=== PATIENT | male | born 1960 | race Caucasian/White ===

== ENCOUNTER 2019-02-24 13:53 | Emergency (ER) | payer MEDICARE ==
[2019-02-24 14:20] VITALS: RESP 18
--- NOTE | 2019-02-24 15:11 | ED ---
Dizziness HPI - General Chief Complaint: Dizziness Stated Complaint: R arm pain, Dizziness Time Seen by Provider: 02/24/19 14:51 Source: patient, RN notes reviewed, old records reviewed Mode of arrival: wheelchair Limitations: no limitations - History of Present Illness Initial Comments: This is a 59-year-old male the ER for evaluation he presents today for evaluation regarding dizziness. Dizziness lightheadedness not feeling well. No chest pain no shortness of breath no recent travel history or sick contacts. Does have seizure history unknown cause of seizures. Patient takes Dilantin for seizures. No recent seizure. Patient states he did have symptoms that started at 10:30. No recent travel history no sick no nausea vomiting or diarrhea. MD Complaint: dizziness -: hour(s) Timing: gradual onset, waxing/waning Description: sense of movement, lightheadedness History of Same: No History of Trauma: No Severity: mild Improves With: nothing Worsens With: nothing Associated Symptoms: denies other symptoms - Related Data Home Medications Medication Instructions Recorded Confirmed Aspirin EC [Ecotrin] 650 mg PO DAILY PRN 02/24/19 02/24/19 Phenytoin Sodium Extended 200 mg PO HS 02/24/19 02/24/19 [Dilantin] Phenytoin Sodium Extended 300 mg PO QAM 02/24/19 02/24/19 [Dilantin] Allergies Allergy/AdvReac Type Severity Reaction Status Date / Time No Known Allergies Allergy Verified 02/24/19 14:56 Review of Systems ROS Statement: Those systems with pertinent positive or pertinent negative responses have been documented in the HPI. ROS Other: All systems not noted in ROS Statement are negative. Past Medical History Past Medical History: Seizure Disorder History of Any Multi-Drug Resistant Organisms: None Reported Past Surgical History: Hernia Repair Past Psychological History: No Psychological Hx Reported Smoking Status: Current every day smoker Past Alcohol Use History: None Reported Past Drug Use History: Marijuana General Exam - General Exam Comments Initial Comments: NIH of 0 Limitations: no limitations General appearance: alert, in no apparent distress Head exam: Present: atraumatic, normocephalic, normal inspection Eye exam: Present: normal appearance, PERRL, EOMI. Absent: scleral icterus, conjunctival injection, periorbital swelling ENT exam: Present: normal exam, mucous membranes moist Neck exam: Present: normal inspection. Absent: tenderness, meningismus, lymphadenopathy Respiratory exam: Present: normal lung sounds bilaterally. Absent: respiratory distress, wheezes, rales, rhonchi, stridor Cardiovascular Exam: Present: regular rate, normal rhythm, normal heart sounds. Absent: systolic murmur, diastolic murmur, rubs, gallop, clicks GI/Abdominal exam: Present: soft, normal bowel sounds. Absent: distended, tenderness, guarding, rebound, rigid Extremities exam: Present: normal inspection, full ROM, normal capillary refill. Absent: tenderness, pedal edema, joint swelling, calf tenderness Back exam: Present: normal inspection Neurological exam: Present: alert, oriented X3, CN II-XII intact Psychiatric exam: Present: normal affect, normal mood Skin exam: Present: warm, dry, intact, normal color. Absent: rash Course Vital Signs 02/24/19 14:14 Temperature 98.6 F Pulse Rate 67 Respiratory 18 Rate Blood Pressure 121/78 O2 Sat by Pulse 98 Oximetry - Reevaluation(s) Reevaluation #1: 02/24/19 16:29 Medical records reviewed Reevaluation #2: 02/24/19 16:29 Patient symptoms are improved here in the ER with hydration EKG Findings - EKG Comments: EKG Findings:: EKG shows sinus bradycardia rate of 58, DE 136, QRS 84, QTc 412 Medical Decision Making - Medical Decision Making 59 male the ER for evaluation. Patient is today for evaluation of dizziness. No significant cause found lab values normal CT is negative patient feeling better and can be discharged home - Lab Data Result diagrams: 02/24/19 16:00 02/24/19 16:00 Lab Results 02/24/19 02/24/19 02/24/19 Range/Units 16:00 16:00 16:00 WBC 6.3 (3.8-10.6) k/uL RBC 5.28 (4.30-5.90) m/uL Hgb 15.3 (13.0-17.5) gm/dL Hct 46.5 (39.0-53.0) % MCV 88.0 (80.0-100.0) fL MCH 28.9 (25.0-35.0) pg MCHC 32.9 (31.0-37.0) g/dL RDW 13.2 (11.5-15.5) % Plt Count 299 (150-450) k/uL Neutrophils % 60 % Lymphocytes % 24 % Monocytes % 8 % Eosinophils % 5 % Basophils % 1 % Neutrophils # 3.7 (1.3-7.7) k/uL Lymphocytes # 1.5 (1.0-4.8) k/uL Monocytes # 0.5 (0-1.0) k/uL Eosinophils # 0.3 (0-0.7) k/uL Basophils # 0.1 (0-0.2) k/uL PT (9.0-12.0) sec INR (<1.2) APTT (22.0-30.0) sec Sodium 138 (137-145) mmol/L Potassium 4.8 (3.5-5.1) mmol/L Chloride 105 (98-107) mmol/L Carbon Dioxide 29 (22-30) mmol/L Anion Gap 4 mmol/L BUN 13 (9-20) mg/dL Creatinine 0.94 (0.66-1.25) mg/dL Est GFR (CKD-EPI)AfAm >90 (>60 ml/min/1.73 sqM) Est GFR (CKD-EPI)NonAf 88 (>60 ml/min/1.73 sqM) Glucose 94 (74-99) mg/dL Calcium 9.5 (8.4-10.2) mg/dL Phosphorus 3.7 (2.5-4.5) mg/dL Magnesium 2.0 (1.6-2.3) mg/dL Total Bilirubin 0.4 (0.2-1.3) mg/dL AST 19 (17-59) U/L ALT 19 L (21-72) U/L Alkaline Phosphatase 113 (38-126) U/L Troponin I (0.000-0.034) ng/mL NT-Pro-B Natriuret Pep 59 pg/mL Total Protein 7.3 (6.3-8.2) g/dL Albumin 4.2 (3.5-5.0) g/dL TSH 1.120 (0.465-4.680) mIU/L Phenytoin 12.4 ug/mL 02/24/19 02/24/19 Range/Units 16:00 16:00 WBC (3.8-10.6) k/uL RBC (4.30-5.90) m/uL Hgb (13.0-17.5) gm/dL Hct (39.0-53.0) % MCV (80.0-100.0) fL MCH (25.0-35.0) pg MCHC (31.0-37.0) g/dL RDW (11.5-15.5) % Plt Count (150-450) k/uL Neutrophils % % Lymphocytes % % Monocytes % % Eosinophils % % Basophils % % Neutrophils # (1.3-7.7) k/uL Lymphocytes # (1.0-4.8) k/uL Monocytes # (0-1.0) k/uL Eosinophils # (0-0.7) k/uL Basophils # (0-0.2) k/uL PT 10.4 (9.0-12.0) sec INR 1.0 (<1.2) APTT 26.4 (22.0-30.0) sec Sodium (137-145) mmol/L Potassium (3.5-5.1) mmol/L Chloride (98-107) mmol/L Carbon Dioxide (22-30) mmol/L Anion Gap mmol/L BUN (9-20) mg/dL Creatinine (0.66-1.25) mg/dL Est GFR (CKD-EPI)AfAm (>60 ml/min/1.73 sqM) Est GFR (CKD-EPI)NonAf (>60 ml/min/1.73 sqM) Glucose (74-99) mg/dL Calcium (8.4-10.2) mg/dL Phosphorus (2.5-4.5) mg/dL Magnesium (1.6-2.3) mg/dL Total Bilirubin (0.2-1.3) mg/dL AST (17-59) U/L ALT (21-72) U/L Alkaline Phosphatase (38-126) U/L Troponin I <0.012 (0.000-0.034) ng/mL NT-Pro-B Natriuret Pep pg/mL Total Protein (6.3-8.2) g/dL Albumin (3.5-5.0) g/dL TSH (0.465-4.680) mIU/L Phenytoin ug/mL - Radiology Data Radiology results: report reviewed (CT brain is negative for acute disease), image reviewed Disposition Clinical Impression: Dizziness Disposition: HOME SELF-CARE Condition: Good Instructions (If sedation given, give patient instructions): Dizziness (ED) Is patient prescribed a controlled substance at d/c from ED?: No Referrals: None,Stated [Primary Care Provider] - 1-2 days
[2019-02-24] MEDS ORDERED: ONDANSETRON 4 MG/2 ML VIAL IVP STA (16:01)
[2019-02-24] MEDS ORDERED: SODIUM CHLORIDE 0.9% 1,000 ML IV STA (16:01)
[2019-02-24 16:10] LABS: Basophils # (A) 0.1 k/uL (0-0.2); Basophils % (A) 1 %; Eosinophils # (A) 0.3 k/uL (0-0.7); Eosinophils % (A) 5 %; HCT 46.5 % (39.0-53.0); HGB 15.3 gm/dL (13.0-17.5); Lymphocytes # (A) 1.5 k/uL (1.0-4.8); Lymphocytes % (A) 24 %; MCH 28.9 pg (25.0-35.0); MCHC 32.9 g/dL (31.0-37.0); Mean Platelet Volume 6.9; Monocytes # (A) 0.5 k/uL (0-1.0); Monocytes % (A) 8 %; Neutrophils # (A) 3.7 k/uL (1.3-7.7); Neutrophils % (A) 60 %; Platelet Count 299 k/uL (150-450); RBC 5.28 m/uL (4.30-5.90); RDW 13.2 % (11.5-15.5); WBC 6.3 k/uL (3.8-10.6)
[2019-02-24 16:20] LABS: Partial Thromboplastin Time 26.4 sec (22.0-30.0); Prothrombin Time 10.4 sec (9.0-12.0)
[2019-02-24 16:22] LABS: ALT 19 U/L (21-72); AST 19 U/L (17-59); African American GFR (CKD) >90 (>60 ml/min/1.73 sqM); Albumin 4.2 g/dL (3.5-5.0); Alkaline Phosphatase 113 U/L (38-126); Anion Gap 4 mmol/L; Blood Urea Nitrogen 13 mg/dL (9-20); Calcium 9.5 mg/dL (8.4-10.2); Carbon Dioxide 29 mmol/L (22-30); Chloride 105 mmol/L (98-107); Glucose 94 mg/dL (74-99); Phenytoin (Dilantin) 12.4 ug/mL; Phosphorus 3.7 mg/dL (2.5-4.5); Potassium 4.8 mmol/L (3.5-5.1); Sodium 138 mmol/L (137-145); Total Bilirubin 0.4 mg/dL (0.2-1.3); Total Protein 7.3 g/dL (6.3-8.2)
--- NOTE | 2019-02-24 16:38 | CT ---
EXAMINATION TYPE: CT brain wo con DATE OF EXAM: 02/24/2019 COMPARISON: None HISTORY: Right arm and leg numbness and tingling. CT DLP: 1099.4 mGycm Automated exposure control for dose reduction was used. FINDINGS: Ventricles have normal size. There is no mass effect nor midline shift. There is no sign of intracran ial hemorrhage. Calvarium is intact. There is mucosal thickening throughout the ethmoid sinuses exten ding into the frontal sinuses. There is mild mucosal thickening in the sphenoid and maxillary sinuses . IMPRESSION: NEGATIVE CT SCAN OF THE BRAIN. PANSINUSITIS.
[2019-02-24 17:56] VITALS: BP 112/66; PULSE 58; TEMP 97.3
== END 2019-02-24 17:56 | disposition home or self-care (01) ==
LOC: EC 13:53
DX: R42 Dizziness and giddiness (principal); G40.909 Epilepsy, unspecified, not intractable, without status epilepticus; F17.200 Nicotine dependence, unspecified, uncomplicated; Z79.82 Long term (current) use of aspirin; Z79.899 Other long term (current) drug therapy
CPT/HCPCS: 36415; 93005; 83880; 80053; 80185; 83735; 84100; 84443; 84484; 85025; 85610; 85730; 70450; 99285; 96374; 96361; J2405

== ENCOUNTER 2021-11-02 09:15 | Inpatient (IN) | payer MEDICARE ==
[2021-11-02] MEDS ORDERED: SODIUM CHLORIDE 0.9% 500 ML 500 ML IV STA (10:03)
--- NOTE | 2021-11-02 10:09 | ED ---
General Adult HPI - General Chief complaint: Nausea/Vomiting/Diarrhea Stated complaint: dizziness Time Seen by Provider: 11/02/21 09:33 Source: patient, EMS Mode of arrival: EMS Limitations: no limitations - History of Present Illness Initial comments: Dictation was produced using [employer] dictation software. please excuse any grammatical, word or spelling errors. Chief Complaint: 61-year-old male past medical history of seizure disorder presents to the ER for total body tingling paresthesias History of Present Illness: Is 61-year-old ninth past medical history of seizure disorder. He takes Dilantin. Patient denies any other medical problems. Patient states for the last 4 days he feels total body tingling from his head all the way down to his toes. Patient states he also has some mild nausea and dizziness. Denies any pain complaints. Denies any constitutional symptoms. The ROS documented in this emergency department record has been reviewed and confirmed by me. Those systems with pertinent positive or negative responses have been documented in the HPI. All other systems are other negative and/or noncontributory. PHYSICAL EXAM: General Impression: Alert and oriented x3, not in acute distress HEENT: Normocephalic atraumatic, extra-ocular movements intact, pupils equal and reactive to light bilaterally, mucous membranes moist. Cardiovascular: Heart regular rate and rhythm Chest: Able to complete full sentences, no retractions, no tachypnea Abdomen: abdomen soft, non-tender, non-distended, no organomegaly Musculoskeletal: Pulses present and equal in all extremities, no peripheral edema Motor: no focal deficits noted Neurological: CN II-XII grossly intact, no focal motor or sensory deficits noted Skin: Intact with no visualized rashes Psych: Normal affect and mood ED course: 61-year-old well-appearing male presents to the emergency department for total body paresthesias. Vital signs upon arrival are within acceptable limits. Laboratory evaluation obtained. CBC unremarkable. Metabolic panel is negative. Dilantin level is 35.1. Patient reevaluated bedside 11:45 AM. He is not showing any symptoms of Dilantin toxicity. Patient be admitted for the lab level monitor. Neurology will be consulted for history of seizures and Dilantin management. EKG interpretation: Ventricular rate 62, sinus rhythm,. Interval 183, appears 94, QTC 419. No [place] prolongation, no QTC prolongation, no ST or T-wave changes noted. Overall, this EKG is unremarkable - Related Data Home Medications Medication Instructions Recorded Confirmed Aspirin EC [Ecotrin] 650 mg PO DAILY PRN 02/24/19 02/24/19 Phenytoin Sodium Extended 200 mg PO HS 02/24/19 02/24/19 [Dilantin] Phenytoin Sodium Extended 300 mg PO QAM 02/24/19 02/24/19 [Dilantin] Allergies Allergy/AdvReac Type Severity Reaction Status Date / Time No Known Allergies Allergy Verified 02/24/19 14:56 Review of Systems ROS Statement: Those systems with pertinent positive or pertinent negative responses have been documented in the HPI. ROS Other: All systems not noted in ROS Statement are negative. Past Medical History Past Medical History: Seizure Disorder History of Any Multi-Drug Resistant Organisms: None Reported Past Surgical History: Hernia Repair Past Psychological History: No Psychological Hx Reported Smoking Status: Former smoker Past Alcohol Use History: None Reported Past Drug Use History: Marijuana General Exam Limitations: no limitations Course Vital Signs 11/02/21 11/02/21 09:18 11:06 Temperature 97.7 F Pulse Rate 70 63 Respiratory 20 18 Rate Blood Pressure 147/101 124/77 O2 Sat by Pulse 100 96 Oximetry Medical Decision Making - Lab Data Result diagrams: 11/02/21 10:08 11/02/21 10:08 Lab Results 11/02/21 11/02/21 Range/Units 10:08 10:08 WBC 7.9 (3.8-10.6) k/uL RBC 5.51 (4.30-5.90) m/uL Hgb 15.8 (13.0-17.5) gm/dL Hct 49.0 (39.0-53.0) % MCV 89.0 (80.0-100.0) fL MCH 28.6 (25.0-35.0) pg MCHC 32.1 (31.0-37.0) g/dL RDW 13.7 (11.5-15.5) % Plt Count 396 (150-450) k/uL MPV 7.7 Neutrophils % 66 % Lymphocytes % 20 % Monocytes % 7 % Eosinophils % 4 % Basophils % 1 % Neutrophils # 5.2 (1.3-7.7) k/uL Lymphocytes # 1.5 (1.0-4.8) k/uL Monocytes # 0.5 (0-1.0) k/uL Eosinophils # 0.3 (0-0.7) k/uL Basophils # 0.1 (0-0.2) k/uL Sodium 139 (137-145) mmol/L Potassium 5.3 H (3.5-5.1) mmol/L Chloride 103 (98-107) mmol/L Carbon Dioxide 30 (22-30) mmol/L Anion Gap 6 mmol/L BUN 17 (9-20) mg/dL Creatinine 0.93 (0.66-1.25) mg/dL Est GFR (CKD-EPI)AfAm >90 (>60 ml/min/1.73 sqM) Est GFR (CKD-EPI)NonAf 87 (>60 ml/min/1.73 sqM) Glucose 118 H (74-99) mg/dL Calcium 9.8 (8.4-10.2) mg/dL Magnesium 2.1 (1.6-2.3) mg/dL Total Bilirubin 0.5 (0.2-1.3) mg/dL AST 19 (17-59) U/L ALT 18 (4-49) U/L Alkaline Phosphatase 123 (38-126) U/L Total Protein 8.1 (6.3-8.2) g/dL Albumin 4.7 (3.5-5.0) g/dL Phenytoin 35.1 H* ug/mL Disposition Clinical Impression: Dilantin toxicity Disposition: ADMITTED IP TO THIS [facility] Condition: Fair Referrals: Nonstaff,Physician [REFERRING] - 1-2 days Decision Time: 11:43
[2021-11-02 10:34] LABS: Basophils # (A) 0.1 k/uL (0-0.2); Basophils % (A) 1 %; Eosinophils # (A) 0.3 k/uL (0-0.7); Eosinophils % (A) 4 %; HGB 15.8 gm/dL (13.0-17.5); Lymphocytes # (A) 1.5 k/uL (1.0-4.8); Lymphocytes % (A) 20 %; MCH 28.6 pg (25.0-35.0); MCHC 32.1 g/dL (31.0-37.0); Mean Platelet Volume 7.7; Monocytes # (A) 0.5 k/uL (0-1.0); Monocytes % (A) 7 %; Neutrophils # (A) 5.2 k/uL (1.3-7.7); Neutrophils % (A) 66 %; Platelet Count 396 k/uL (150-450); RBC 5.51 m/uL (4.30-5.90); RDW 13.7 % (11.5-15.5); WBC 7.9 k/uL (3.8-10.6)
[2021-11-02 10:35] LABS: ALT 18 U/L (4-49); AST 19 U/L (17-59); African American GFR (CKD) >90 (>60 ml/min/1.73 sqM); Albumin 4.7 g/dL (3.5-5.0); Alkaline Phosphatase 123 U/L (38-126); Anion Gap 6 mmol/L; Blood Urea Nitrogen 17 mg/dL (9-20); Calcium 9.8 mg/dL (8.4-10.2); Carbon Dioxide 30 mmol/L (22-30); Chloride 103 mmol/L (98-107); Glucose 118 mg/dL (74-99); Magnesium 2.1 mg/dL (1.6-2.3); Non-African American GFR(CKD) 87 (>60 ml/min/1.73 sqM); Potassium 5.3 mmol/L (3.5-5.1); Sodium 139 mmol/L (137-145); Total Bilirubin 0.5 mg/dL (0.2-1.3); Total Protein 8.1 g/dL (6.3-8.2)
[2021-11-02 10:40] LABS: Phenytoin (Dilantin) 35.1 ug/mL
[2021-11-02] MEDS ORDERED: NALOXONE 0.4 MG/ML 1 ML VIAL IV PRN (11:33)
[2021-11-02] MEDS: SODIUM CHLORIDE 0.9% 1,000 ML IV SCH (11:36)
--- NOTE | 2021-11-02 13:30 | XR ---
EXAMINATION TYPE: XR chest 1V portable DATE OF EXAM: 11/02/2021 COMPARISON: None INDICATION: Cough TECHNIQUE: Single frontal view of the chest is obtained. FINDINGS: The heart size is normal. The pulmonary vasculature is normal. The lungs are clear. IMPRESSION: 1. No acute pulmonary process.
--- NOTE | 2021-11-02 17:05 | P.CNNES ---
History of Present Illness Consult date: 11/02/21 Reason for Consult: history of seizure disorder History of Present Illness: The patient is a 61-year-old male who is seen in neurologic consultation on November 02, 2021 via teleneurology. The patient is being seen in consultation because of history of seizure disorder and Dilantin toxicity. Patient reportedly presented to the emergency department with complaints of generalized body tingling. CT scan of the brain was performed which was negative for acute hemorrhage and infarct. Laboratory evaluation reveals an elevated potassium of 5.3. Dilantin level is markedly elevated at 35.1. The patient himself reports that he came into the emergency department because of generalized paresthesias. He feels that his balance and coordination are off. He also reports feeling lightheaded. The patient denies headache, difficulty with speech and swallowing. In regards to his seizure disorder, the patient states that he began having se izures in his late 30s. He was living in [place] at this time. He reportedly had an MRI. He is unable to tell me any of the results of testing. He says "I did a lot of drinking back then". He says that he had seizures when he was drinking and when he was not drinking alcohol. He denies a history of delirium tremens. He says that his most recent seizure was approximately 5 years ago. He does not follow with a neurologist. He says that his family doctor gives him the prescription for Dilantin. He says that the last time he had his level checked it was reportedly low. He is unable to tell me the actual number. He says at that time the dosing of Dilantin was increased. There is a Dilantin bottle present in the room with the patient. Dosing instructions on the bottle are to take 3, 100 mg pills, 3 times daily. The patient reports a history of 2 closed head injuries. He does not know if there was any cerebral hemorrhage associated with these head injuries. Past Medical History Past Medical History: Seizure Disorder History of Any Multi-Drug Resistant Organisms: None Reported Past Surgical History: Hernia Repair Past Psychological History: No Psychological Hx Reported Smoking Status: Former smoker Past Alcohol Use History: None Reported Past Drug Use History: Marijuana - Past Family History Father Family Medical History: Cancer Medications and Allergies Home Medications Medication Instructions Recorded Confirmed Type Aspirin EC [Ecotrin] 975 mg PO DAILY 02/24/19 11/02/21 History Phenytoin Sodium Extended 300 mg PO TID 02/24/19 11/02/21 History [Dilantin] Acetaminophen [Tylenol Arthritis] 1,300 mg PO DAILY 11/02/21 11/02/21 History Allergies Allergy/AdvReac Type Severity Reaction Status Date / Time No Known Allergies Allergy Verified 02/24/19 14:56 Physical Examination - Vital Signs Vital Signs: Vital Signs Temp Pulse Pulse Resp BP BP Pulse Ox 11/02/21 12:32 97.7 F 58 L 20 152/73 99 11/02/21 11:06 63 18 124/77 96 11/02/21 09:18 97.7 F 70 20 147/101 100 Intake and Output 11/01/21 11/02/21 11/02/21 22:59 06:59 14:59 Other: Weight 72.575 kg Gen.: The patient is reclining in the bed. He is well-nourished. He is in no acute distress. He is slightly unkempt. HEENT: Head is atraumatic, normocephalic. Fundus not visualized. There is no scleral icterus. Mucous membranes are moist. Teeth are in poor repair. Neck: Supple without carotid bruits Heart: Regular rate and rhythm Extremities: Without edema Neurological examination Mental status: The patient is awake, alert and oriented 3. His speech is clear. There is no dysarthria or aphasia. Cranial nerves: Pupils are equal at 3 millimeters and reactive. Visual gamboa are full to confrontation. Extraocular movements are intact. There is no nystagmus. Facial sensation is intact. There is no facial asymmetry. Hearing is grossly intact. Uvula and palate are midline. Shoulder shrug is symmetric. Tongue protrudes midline. Motor: Strength is 5/5 throughout. Sensation: Intact to light touch throughout. There is no extinction with double simultaneous stimulation. Coordination: Finger to nose, rapid alternating movements are intact. [id number] testing is ataxic bilaterally. Deep tendon reflexes: 3+/4+ throughout. Gait: Not assessed Results - Laboratory Findings CBC and BMP: 11/02/21 10:08 11/02/21 10:08 Abnormal Lab Findings: Abnormal Labs 11/02/21 10:08 Potassium 5.3 H Glucose 118 H Phenytoin 35.1 H* Assessment and Plan Assessment: 1. Reported history of seizure disorder, etiology undetermined, with Dilantin toxicity 2. Reported history of alcohol abuse 3. Reported history of closed head injury 2 Plan: 1. Hold Dilantin for 24 hours then, recheck level 2. Seizure precaution should be put in place 3. Neuro checks every 4-6 hours 4. Would recommend follow-up with neurologist as outpatient 5. Restart Dilantin at lower dose, when level is therapeutic (10-20) Thank you for allowing us to participate in the care of this patient Time with Patient: Less than 30 (Spent 25 minutes with patient via telemedicine)
--- NOTE | 2021-11-02 19:27 | P.HPIM ---
History of Present Illness This is a pleasant 61 years old male with past medical history of seizure disorder on phenytoin. He presents with dizziness for 4 days duration. Patient follow-up with the neurologist as an outpatient who increased his Dilantin, and was taken 3 pills in the morning, 2 pills in the evening at 3 pills at night. He did not have seizure for many years but his level was low last month as per patient so his neurologist Dr. Abi felipe increase his dose of phenytoin into 3 pills 3 times a day. Over the last 4 days has been having dizziness which is nonspecific and affects his ability to walk. Associated also with whole-body numbness and tingling. Patient today thought he was going to fall therefore he decided to come to the hospital. Also he has some evidence of blurred vision which is improved now and generalized weakness Patient denies chest pain or dyspnea at rest. No change in urine or bowel habits. No fever. Patient reports exertional dyspnea He quit smoking about 1.5 years ago, he quit drinking alcohol many years ago but he smokes 1-2 joints a day. On admission hemodynamically stable. CBC, BMP, liver enzymes are unremarkable except for mildly elevated potassium 5.3 Phenytoin level is higher than reference range at 35.1, reference range goes up to 20 only Chest x-ray: No acute process Review of Systems Review of systems CONSTITUTIONAL: No fever, no malaise, no fatigue. HEENT: No recent visual problems or hearing problems. Denied any sore throat. CARDIOVASCULAR: No orthopnea, PND, no palpitations, no syncope. PULMONARY: No shortness of breath, no cough, no hemoptysis. GASTROINTESTINAL: No diarrhea, no nausea, no vomiting, no abdominal pain. Normoactive bowel sounds. NEUROLOGICAL: No headaches, no weakness, no numbness. HEMATOLOGICAL: Denies any bleeding or petechiae. GENITOURINARY: Denies any burning micturition, frequency, or urgency. MUSCULOSKELETAL/RHEUMATOLOGICAL: Denies any joint pain, swelling, or any muscle pain. ENDOCRINE: Denies any polyuria or polydipsia. Past Medical History Past Medical History: Seizure Disorder History of Any Multi-Drug Resistant Organisms: None Reported Past Surgical History: Hernia Repair Past Psychological History: No Psychological Hx Reported Smoking Status: Former smoker Past Alcohol Use History: None Reported Past Drug Use History: Marijuana - Past Family History Father Family Medical History: Cancer Medications and Allergies Home Medications Medication Instructions Recorded Confirmed Type Aspirin EC [Ecotrin] 975 mg PO DAILY 02/24/19 11/02/21 History Phenytoin Sodium Extended 300 mg PO TID 02/24/19 11/02/21 History [Dilantin] Acetaminophen [Tylenol Arthritis] 1,300 mg PO DAILY 11/02/21 11/02/21 History Allergies Allergy/AdvReac Type Severity Reaction Status Date / Time No Known Allergies Allergy Verified 02/24/19 14:56 Physical Exam Vitals: Vital Signs Temp Pulse Pulse Resp BP BP Pulse Ox 11/02/21 12:32 97.7 F 58 L 20 152/73 99 11/02/21 11:06 63 18 124/77 96 11/02/21 09:18 97.7 F 70 20 147/101 100 Intake and Output 11/01/21 11/02/21 11/02/21 22:59 06:59 14:59 Other: Weight 72.575 kg GENERAL: The patient is alert and oriented x3, not in any acute distress. Well developed, well nourished. HEENT: Pupils are round and equally reacting to light. EOMI. No scleral icterus. No conjunctival pallor. Normocephalic, atraumatic. No pharyngeal erythema. No thyromegaly. CARDIOVASCULAR: S1 and S2 present. No murmurs, rubs, or gallops. PULMONARY: Chest is clear to auscultation, no wheezing or crackles. ABDOMEN: Soft, nontender, nondistended, normoactive bowel sounds. No palpable organomegaly. MUSCULOSKELETAL: No joint swelling or deformity. EXTREMITIES: No cyanosis, clubbing, or pedal edema. NEUROLOGICAL: Gross neurological examination did not reveal any focal deficits. SKIN: No rashes. no petechiae. Results CBC & Chem 7: 11/02/21 10:08 11/02/21 10:08 Labs: Abnormal Lab Results - Last 24 Hours (Table) 11/02/21 Range/Units 10:08 Potassium 5.3 H (3.5-5.1) mmol/L Glucose 118 H (74-99) mg/dL Phenytoin 35.1 H* ug/mL Assessment and Plan Assessment: Phenytoin toxicity History of seizure Plan: This is a pleasant 61 years old male who presents with Dilantin toxicity hold Dilantin and recheck level Neurology consult Labs and medication were reviewed.. Continue same treatment. Continue with symptomatic treatment. Resume home medication. Monitor lytes and vitals. DVT and GI prophylaxis. Further recommendations as per clinical course of the patient DVT prophylaxis: Subcutaneous heparin GI Prophylaxis: Pepcid
[2021-11-02] MEDS: FAMOTIDINE 20 MG/2 ML VIAL IV SCH (20:20)
[2021-11-02] MEDS: HEPARIN SODIUM,PORCINE/PF 5,000 UNIT/0.5 ML SYRINGE SQ SCH (20:22)
[2021-11-03] MEDS: HEPARIN SODIUM,PORCINE/PF 5,000 UNIT/0.5 ML SYRINGE SQ SCH ×2 (07:13→18:43)
[2021-11-03] MEDS: FAMOTIDINE 20 MG/2 ML VIAL IV SCH (07:42)
[2021-11-03] MEDS: ASPIRIN 325 MG TAB PO SCH (07:42)
[2021-11-03 09:34] LABS: African American GFR (CKD) 85.2 (60.0-200.0); Anion Gap 7.8 mmol/L (10.00-18.00); BUN/Creat Ratio 15.89 Ratio (12.00-20.00); Calcium 9.5 mg/dL (8.7-10.3); Carbon Dioxide 27.9 mmol/L (20.0-27.5); Non-African American GFR(CKD) 73.5 (60.0-200.0); Potassium 4.7 mmol/L (3.5-5.5)
--- NOTE | 2021-11-03 13:03 | P.PN ---
Subjective This is a pleasant 61 years old male with past medical history of seizure disorder on phenytoin. He presents with dizziness for 4 days duration. Patient follow-up with the neurologist as an outpatient who increased his Dilantin, and was taken 3 pills in the morning, 2 pills in the evening at 3 pills at night. He did not have seizure for many years but his level was low last month as per patient so his neurologist Dr. Abi felipe increase his dose of phenytoin into 3 pills 3 times a day. Over the last 4 days has been having dizziness which is nonspecific and affects his ability to walk. Associated also with whole-body numbness and tingling. Patient today thought he was going to fall therefore he decided to come to the hospital. Also he has some evidence of blurred vision which is improved now and generalized weakness Patient denies chest pain or dyspnea at rest. No change in urine or bowel habits. No fever. Patient reports exertional dyspnea He quit smoking about 1.5 years ago, he quit drinking alcohol many years ago but he smokes 1-2 joints a day. On admission hemodynamically stable. CBC, BMP, liver enzymes are unremarkable except for mildly elevated potassium 5.3 Phenytoin level is higher than reference range at 35.1, reference range goes up to 20 only Chest x-ray: No acute process 11/03/2021 Patient is awake and alert and SYMPTOMS of dizziness, generalized body numbness and tingling and blurred vision are resolved. Hemodynamically stable. Repeat potassium was normal for 0.7. Repeat Dilantin ordered by neurologist is pending. Currently Dilantin on hold Objective - Vital Signs Vital signs: Vital Signs Temp 97.9 F 11/03/21 11:09 Pulse 63 11/03/21 11:09 Resp 20 11/03/21 11:09 BP 130/80 11/03/21 11:09 Pulse Ox 97 11/03/21 11:09 Intake & Output 11/02/21 11/03/21 11/03/21 18:59 06:59 18:59 Intake Total 600 400 Balance 600 400 Weight 72.575 kg Intake: Oral 600 400 Other: # Voids 1 2 - Labs CBC & Chem 7: 11/02/21 10:08 11/03/21 06:41 Labs: Abnormal Lab Results - Last 24 Hours (Table) 11/03/21 Range/Units 06:41 Carbon Dioxide 27.9 H (20.0-27.5) mmol/L Anion Gap 7.80 L (10.00-18.00) mmol/L Assessment and Plan Assessment: Phenytoin toxicity History of seizure Plan: This is a pleasant 61 years old male who presents with Dilantin toxicity hold Dilantin and recheck level per Neurologist recommendation Neurology consult Labs and medication were reviewed.. Continue same treatment. Continue with symptomatic treatment. Resume home medication. Monitor lytes and vitals. DVT and GI prophylaxis. Further recommendations as per clinical course of the patient DVT prophylaxis: Subcutaneous heparin GI Prophylaxis: Pepcid
[2021-11-03] MEDS: SODIUM CHLORIDE 0.9% 1,000 ML IV SCH (13:18)
[2021-11-03] MEDS: FAMOTIDINE 20 MG TAB PO SCH (19:49)
[2021-11-04] MEDS: HEPARIN SODIUM,PORCINE/PF 5,000 UNIT/0.5 ML SYRINGE SQ SCH (08:08)
[2021-11-04] MEDS: ASPIRIN 325 MG TAB PO SCH (08:09)
[2021-11-04] MEDS: FAMOTIDINE 20 MG TAB PO SCH (08:10)
[2021-11-04] MEDS ORDERED: PHENYTOIN SODIUM EXTENDED 100 MG CAP PO SCH (11:30)
[2021-11-04] MEDS: SODIUM CHLORIDE 0.9% 1,000 ML IV SCH (12:04)
--- NOTE | 2021-11-04 12:44 | P.DS ---
Providers Date of admission: 11/02/21 11:33 Expected date of discharge: 11/04/21 Attending physician: Vadim Escamilla MD Consults: 11/02/21 11:34 Consult Physician Routine Consulting Provider: Shwetha Cartagena Consult Reason/Comments: history of seizure Do you want consulting provider notified?: Yes Primary care physician: Anna Marie Herman Hospital Course: Final diagnoses: Phenytoin toxicity History of seizure, last seizure reported 4-5 years ago Excessive caffeine intake, drinks a pot of coffee per day Reported history of alcohol abuse Reported history of closed head injury X 2. Hospital course: [This is a pleasant 61 years old male with past medical history of seizure disorder on phenytoin. He presents with dizziness for 4 days duration. Patient follow-up with the neurologist as an outpatient who increased his Dilantin, and was taken 3 pills in the morning, 2 pills in the evening at 3 pills at night. He did not have seizure for many years but his level was low last month as per patient so his neurologist Dr. Abi felipe increase his dose of phenytoin into 3 pills 3 times a day. Over the last 4 days has been having dizziness which is nonspecific and affects his ability to walk. Associated also with whole-body numbness and tingling. Patient today thought he was going to fall therefore he decided to come to the hospital. Also he has some evidence of blurred vision which is improved now and generalized weakness Patient denies chest pain or dyspnea at rest. No change in urine or bowel habits. No fever. Patient reports exertional dyspnea He quit smoking about 1.5 years ago, he quit drinking alcohol many years ago but he smokes 1-2 joints a day. On admission hemodynamically stable. CBC, BMP, liver enzymes are unremarkable except for mildly elevated potassium 5.3 Phenytoin level is higher than reference range at 35.1, reference range goes up to 20 only Chest x-ray: No acute process] Evaluated by neurology, Dilantin placed on hold ,recommending further neurology outpatient follow-up. Repeat Dilantin level 26.9. asymptomatic-symptoms of dizziness, generalized body numbness and tingling and blurred vision are resolved. Dilantin resumed with dosing decreased to 300 mg once daily until follow up in clinic with Dilantin levels repeated-further dosing recommendations in clinic. Seizure precautions including no driving discussed with patient. Patient will be discharged home in a stable condition with guarded prognosis. The impression and plan of care has been dictated as directed. : I performed a history and examination of this patient, discussed the same with the dictator. I agree with the dictator's note ,documented as a scribe. Any additional findings or plans will be noted. Patient Condition at Discharge: Stable Plan - Discharge Summary Discharge Rx Participant: Yes New Discharge Prescriptions: Continue Aspirin EC [Ecotrin] 975 mg PO DAILY Phenytoin Sodium Extended [Dilantin] 300 mg PO TID Acetaminophen [Tylenol Arthritis] 1,300 mg PO DAILY Discharge Medication List Aspirin EC [Ecotrin] 975 mg PO DAILY 02/24/19 [History] Acetaminophen [Tylenol Arthritis] 1,300 mg PO DAILY 11/02/21 [History] Phenytoin Sodium Extended [Dilantin] 300 mg PO DAILY #0 11/04/21 [Rx] Follow up Appointment(s)/Referral(s): Vadim Escamilla MD [STAFF PHYSICIAN] - 3 Days Ambulatory/Diagnostic Orders: Miscellaneous Lab Order [LAB.AMB] Time Frame: 3 Days, Location: None Selected Patient Instructions/Handouts: Dilantin Toxicity (ED) Activity/Diet/Wound Care/Special Instructions: Seizure precautions, No driving repeat Dilantin level in clinic. OP Neurology F/U to b arranged in clinic as per PCP Activity limited until seen by Dr. Mercer as tolerated
[2021-11-04 13:16] VITALS: BP 147/73; PULSE 69; RESP 17; TEMP 98.4
[2021-11-05] MEDS ORDERED: PHENYTOIN SODIUM EXTENDED 100 MG CAP PO SCH (09:00)
== END 2021-11-04 14:46 | disposition home or self-care (01) | DRG 101 ==
LOC: EC 09:15 → 5NMEDONC 11:33
PROVIDERS: ADMIT Family Medicine; ATTEND Family Medicine
DX: G40.909 Epilepsy, unspecified, not intractable, without status epilepticus (principal); T42.0X5A Adverse effect of hydantoin derivatives, initial encounter; Z87.891 Personal history of nicotine dependence; Z86.59 Personal history of other mental and behavioral disorders; X58.XXXA Exposure to other specified factors, initial encounter; Z87.820 Personal history of traumatic brain injury; Z87.19 Personal history of other diseases of the digestive system
CPT/HCPCS: 36415; 71045; 80048; 80053; 80185; 83735; 85025; 93005; 96360; 96361; 99285